=== PATIENT | female | born 1995 | race Caucasian/White ===

== ENCOUNTER 2024-09-06 13:36 | Outpatient (CLI) | payer OTHER, SELFPAY ==
--- NOTE | 2024-09-06 14:15 | NEURO_ITS ---
Impression: # Complains of right upper extremity weakness ? # Normal Nerve Conduction Study including motor and sensory nerves. ? # Normal needle/EMG exam proximally and distally. ? # Clinical correlation recommended. Nerve Conduction Studies Anti Sensory Summary Table ?Stim Site NR Peak (ms) P-T Amp (?V) Site1 Site2 Delta-P (ms) Dist (cm) Gabino (m/s) Right Median Anti Sensory (2-3nd Digit) Wrist ? 2.7 95.1 Wrist 2-3nd Digit 2.7 14.0 52 Wrist ? 2.7 84.1 Wrist 2-3nd Digit 2.7 14.0 52 Right Radial Anti Sensory (Base 1st Digit) Wrist ? 2.3 39.8 Wrist Base 1st Digit 2.3 0.0 Right Ulnar Anti Sensory (5th Digit) Wrist ? 2.6 79.5 Wrist 5th Digit 2.6 14.0 54 Motor Summary Table ?Stim Site NR Onset (ms) O-P Amp (mV) Site1 Site2 Delta-0 (ms) Dist (cm) Gabino (m/s) Right Median Motor (Abd Poll Brev) Wrist ? 2.7 7.2 Elbow Wrist 4.0 26.0 65 Elbow ? 6.7 5.4 Right Ulnar Motor (Abd Dig Minimi) Wrist ? 3.0 12.4 A Elbow Wrist 4.3 27.0 63 A Elbow ? 7.3 10.6 F Wave Studies ?NR F-Lat (ms) L-R F-Lat (ms) Right Median (Mrkrs) (Abd Poll Brev) ? 25.73 Right Ulnar (Mrkrs) (Abd Dig Min) ? 24.30 EMG ?Side Muscle Nerve Root Ins Act Fibs Amp Dur Recrt Comment Right 1stDorInt Ulnar C8-T1 Nml Nml Nml Nml Nml Right Ext Indicis Radial (Post Int) C7-8 Nml Nml Nml Nml Nml Right Ext Digitorum Radial (Post Int) C7-8 Nml Nml Nml Nml Nml Right BrachioRad Radial C5-6 Nml Nml Nml Nml Nml Right PronatorTeres Median C6-7 Nml Nml Nml Nml Nml Right Abd Poll Brev Median C8-T1 Nml Nml Nml Nml Nml Right ABD Dig Min Ulnar C8-T1 Nml Nml Nml Nml Nml Right Biceps Musculocut C5-6 Nml Nml Nml Nml Nml Right Triceps Radial C6-7-8 Nml Nml Nml Nml Nml Right Deltoid Axillary C5-6 Nml Nml Nml Nml Nml MTDD
== END 2024-09-06 13:37 | disposition home or self-care (01) ==
PROVIDERS: Visit Provider Emergency Medicine
DX: M62.81 Muscle weakness (generalized) (principal)
CPT/HCPCS: 95886; 95909